=== PATIENT | female | born 1990 | race Caucasian/White ===

== ENCOUNTER 2020-06-11 22:22 | Emergency (ER) | payer BC, SELFPAY ==
[2020-06-11 22:32] VITALS: BP 129/76; PULSE 88; RESP 16; TEMP 36.4; O2SAT 98
--- NOTE | 2020-06-12 00:07 | ED.SKABFB ---
HPI - Skin/Abscess/Foreign Bdy General Chief complaint: Skin/Abscess/Foreign Body Stated complaint: staph infection Time Seen by Provider: 06/11/20 23:54 Source: patient Mode of arrival: ambulatory Limitations: no limitations History of Present Illness HPI narrative: 29-year-old with a history of anxiety here with complaints of rash in the pubic area since last 2 days. She denies any fever or chills. MD complaint: rash Severity: mild Relieving factors: none Exacerbating factors: none Context: none Related Data Allergies Allergy/AdvReac Type Severity Reaction Status Date / Time lidocaine Allergy Intermediate Swelling Verified 05/11/18 06:05 butorphanol Allergy Mild Swelling Verified 05/11/18 06:05 nitrofurantoin Allergy Mild RASH Verified 05/11/18 06:05 Penicillins Allergy Unknown Swelling, Verified 05/11/18 06:05 hives, itching Review of Systems Review of Systems: All systems reviewed & are unremarkable except as noted in HPI and below Constitutional: Constitutional: Reports no additional constitutional complaints Eyes: Eyes: Reports no additional eye complaints Cardiovascular: Cardiovascular: Reports no additional cardiovascular complaints Respiratory: Respiratory: Reports no additional respiratory complaints Gastrointestinal: Gastrointestinal: Reports no additional gastrointestinal complaints Integumentary/Breasts: Skin/Breast: Reports as per HPI PMFSH Past Medical History Medical History Anxiety Depression GERD (gastroesophageal reflux disease) Gestational diabetes Gestational HTN Surgical History Surgical History H/O section H/O tubal ligation History of tonsillectomy Social History Social History (Updated 05/16/19 @ 23:59 by Betsy Solis) Smoking status: Former smoker Gender identity (if verbalized by the patient): Female Exam Narrative: Exam Narrative: GENERAL: Well-appearing, well-nourished, and in no acute distress. HEAD: Normocephalic, atraumatic. EYES: PERRLA and EOMI. NECK: Supple. CHEST: Clear to auscultation. No respiratory distress. HEART: Regular rate and rhythm. No murmur heard. Normal peripheral pulse EXTREMITIES: Normal range of motion. No edema. SKIN: Warm, dry, a small erythematous area with a scab present in the pubic area , no drainage. NEURO: No focal deficits. Alert and oriented x3. PSYCH: Normal mood and affect. Course Vital Signs Vital signs: Vital Signs Temperature 36.4 C L 06/11/20 22:32 Pulse Rate 88 06/11/20 22:32 Respiratory Rate 16 06/11/20 22:32 Blood Pressure 129/76 06/11/20 22:32 Pulse Oximetry 98 06/11/20 22:32 Temperature 36.4 C L 06/11/20 22:32 Pulse Rate 88 06/11/20 22:32 Respiratory Rate 16 06/11/20 22:32 Blood Pressure 129/76 06/11/20 22:32 Pulse Oximetry 98 06/11/20 22:32 Discharge Plan Discharge Clinical Impression: Folliculitis Patient Disposition: Home, Self-Care Condition: Stable Instructions: Antibiotic Form, Folliculitis (ED) Prescriptions: New sulfamethoxazole-trimethoprim [Bactrim DS] 800-160 mg tablet 1 tablet PO Q12H Qty: 14 RF: 0 No Action ibuprofen 400 mg tablet 400 mg PO TID PRN (Reason: fever or pain) 10 Days Qty: 30 RF: 0 diazepam 5 mg tablet 5 mg PO HS PRN (Reason: pain, moderate) Qty: 10 RF: 0 acetaminophen [Tylenol] 325 mg capsule 325 mg PO ONCE 7 Days Qty: 30 RF: 0 Follow-up/Referrals: Raudel Hendrix MD [Primary Care Provider] - Time of Disposition: 00:13
== END 2020-06-12 00:19 | disposition home or self-care (01) ==
PROVIDERS: Emergency Provider Family Medicine; PCP Family Medicine
DX: L73.9 Follicular disorder, unspecified (principal); K21.9 Gastro-esophageal reflux disease without esophagitis; Z87.891 Personal history of nicotine dependence
CPT/HCPCS: 99283

== ENCOUNTER 2021-07-24 10:01 | Emergency (ER) | payer BC, SELFPAY ==
[2021-07-24 10:20] VITALS: BP 115/69; PULSE 94; RESP 18; TEMP 36.3; O2SAT 100
--- NOTE | 2021-07-24 10:20 | ED.LOWEXIN ---
HPI - Extremity Injury (Lower) General Chief Complaint: Extremity Injury, Lower Stated Complaint: hip pain Time Seen by Provider: 07/24/21 10:25 Source: patient and RN notes reviewed Mode of arrival: ambulatory Limitations: no limitations History of Present Illness HPI Narrative: 30-year-old female presents with concern for right hip pain. She reports 3 days ago while at work she felt a sudden pain in her right hip after bending. She denies any direct trauma or injury. She reports taking ibuprofen, however she is not been taking it regularly. She denies any bruising or swelling. She reports the pain radiates down the leg. She denies any numbness, weakness, decreased range of motion, swelling, redness, warmth. She reports pain worsens with weightbearing. Related Data Allergies Allergy/AdvReac Type Severity Reaction Status Date / Time lidocaine Allergy Intermediate Swelling Verified 07/24/21 10:29 butorphanol Allergy Mild Swelling Verified 07/24/21 10:29 nitrofurantoin Allergy Mild RASH Verified 07/24/21 10:29 Penicillins AdvReac Intermediate Swelling, Verified 07/24/21 10:29 hives, itching Review of Systems Review of Systems: CONSTITUTIONAL: Denies malaise, chills, sweats, or fever. SKIN: Denies rash or itching, open skin, laceration, abrasion, redness, warmth, swelling. MUSCULOSKELETAL: Reports right hip pain that radiates down the right leg NEUROLOGIC: Denies numbness, weakness All systems reviewed & are unremarkable except as noted in HPI and below PMFSH Past Medical History Medical History Anxiety Depression GERD (gastroesophageal reflux disease) Gestational diabetes Gestational HTN Surgical History Surgical History H/O section H/O tubal ligation History of tonsillectomy Social History Social History (Updated 05/16/19 @ 23:59 by Betsy Solis) Smoking status: Former smoker Gender identity (if verbalized by the patient): Female Comments At time of signature, agree with nursing past medical, surgical, social and family history. There is no relevant family history pertinent to the presenting complaint Exam Narrative: GENERAL: Well-appearing, well-nourished, and in no acute distress. HEAD: Normocephalic, atraumatic. EYES: PERRLA, sclera clear ENT: Mucous membranes moist. NECK: Supple. CHEST: No respiratory distress. Speaks in full sentences. HEART: Regular rate and rhythm. Normal peripheral pulses. EXTREMITIES: Grossly normal range of motion, no edema, normal strength and sensation. Right lateral hip tenderness. SKIN: Warm, dry, no visible rash. NEURO: Alert and oriented x3. PSYCH: Normal mood and affect Course Course Emergency Course: Patient is aware of diagnosis, understands and agrees to treatment plan. Anticipatory guidance given. Patient agrees to follow-up as directed and is aware of reasons to seek care at the emergency department. Portions of this record may have been created with voice recognition software Level of Care: Express Care Visit Vital Signs Vital signs: Reviewed. MDM - Extremity Injury (Lower) MDM Narrative Medical decision making narrative: Patients pain is consistent with musculoskeletal etiology. No signs of neurological or vascular compromise on exam. Compartments and tissues are soft without signs of compartment syndrome. Pain is felt appropriate for further evaluation on an outpatient basis. Critical Care Time Critical Care Time Critical Care Time: No Discharge Plan Discharge Clinical Impression: Acute hip pain Qualifiers: Laterality: right Qualified Code(s): M25.551 - Pain in right hip Patient Disposition: Home, Self-Care Condition: Stable Instructions: Hip Pain (ED) Additional Instructions: Walking and other gentle exercising as tolerated. Take Motrin 800mg every 6-8 hours with food for the next 2-3 days, take muscle rela
== END 2021-07-24 11:10 | disposition home or self-care (01) ==
PROVIDERS: Emergency Provider Nurse Practitioner; PCP Family Medicine
DX: M25.551 Pain in right hip (principal); K21.9 Gastro-esophageal reflux disease without esophagitis
CPT/HCPCS: 99213; G0463

== ENCOUNTER 2021-11-14 11:49 | Emergency (ER) | payer BC, SELFPAY ==
--- NOTE | ~2021-11-14 | XR_ITS ---
XR ankle RT min 3V DATE: 11/14/2021 12:10 INDICATION: Patient fell yesterday. Right ankle and foot pain TECHNIQUE: 4 views of right ankle COMPARISON: None FINDINGS: No fracture or dislocation of the ankle or disruption of the ankle mortise. No periosteal r eaction or bone destruction. IMPRESSION: Negative Reviewed, dictated and finalized at location A. IMPRESSION: Negative
--- NOTE | ~2021-11-14 | XR_ITS ---
XR foot RT min 3V DATE: 11/14/2021 12:12 INDICATION: Fell yesterday. Medial and dorsal pain of the foot, pain of all toes. TECHNIQUE: 4 views COMPARISON: None FINDINGS: There is minimal osteophyte is at the first metatarsophalangeal joint. No fracture or dislocation, periosteal reaction or bone destruction is detected. IMPRESSION: No fracture or dislocation Reviewed, dictated and finalized at location A. IMPRESSION: No fracture or dislocation
[2021-11-14 11:55] VITALS: BP 129/53; PULSE 75; RESP 18; TEMP 37; O2SAT 100
--- NOTE | 2021-11-14 12:02 | ED.LOWEXIN ---
HPI - Extremity Injury (Lower) General Chief Complaint: Extremity Injury, Lower Stated Complaint: Rt Ankle Pain Due to Fall Time Seen by Provider: 11/14/21 12:02 History of Present Illness HPI Narrative: Karina Appiah is a 30 yo female with PMH of anxiety, depression, GERD, who [facility] after fall down stairs at home last night and has pain in her right ankle and foot. Patient is able to walk but has pain Related Data Home Medications Medication Instructions Recorded Confirmed No Home Medications 11/14/21 11/14/21 Allergies Allergy/AdvReac Type Severity Reaction Status Date / Time lidocaine Allergy Intermediate Swelling Verified 11/14/21 12:03 butorphanol Allergy Mild Swelling Verified 11/14/21 12:03 nitrofurantoin Allergy Mild RASH Verified 11/14/21 12:03 Penicillins AdvReac Intermediate Swelling, Verified 11/14/21 12:03 hives, itching Review of Systems Review of Systems: CONSTITUTIONAL: Denies fever, chills, sweats. EYES: Denies visual changes, redness, discharge. ENT: Denies rhinorrhea, congestion, sore throat, otalgia. CARDIOVASCULAR: Denies chest pain, palpitations, edema. RESPIRATORY: Denies dyspnea, wheezing, cough GASTROINTESTINAL: Denies abdominal pain, nausea, vomiting, diarrhea. GENITOURINARY: Denies dysuria, hematuria, abnormal discharge SKIN: Denies rash or itching. NEUROLOGIC: Denies numbness, or focal weakness. PSYCHIATRIC: Denies anxiety or depression. Right foot and ankle pain PMFSH Past Medical History Medical History Anxiety Depression GERD (gastroesophageal reflux disease) Gestational diabetes Gestational HTN Surgical History Surgical History H/O section H/O tubal ligation History of tonsillectomy Social History Social History Smoking status: Former smoker Gender identity (if verbalized by the patient): Female Comments At time of signature, I agree with nursing past medical, surgical, social and family history. There is no relevant family history pertinent to the presenting complaint. Exam Narrative: GENERAL: This is a well-nourished, well-developed patient, in mild distress. HEAD: normocephalic, atraumatic. EYES: Sclera clear/white. Vision is grossly intact. EARS: External ears normal,. Hearing grossly intact. NOSE: External nose normal without nasal discharge, nares without redness, no rhinorrhea. THROAT: Mucous membranes moist, NECK: Neck supple, non-tender CARDIOVASCULAR: Regular rate and rhythm without murmurs, gallops, or rubs. RESPIRATORY: Clear to auscultation. Breath sounds equal bilaterally. No wheezes, rales, or rhonchi. GASTROINTESTINAL: not done SKIN: warm, intact with no suspicious lesions or rash, good texture and turgor. NEURO: awake, alert, and oriented to person, place and time. There were no obvious focal neurologic abnormalities. Steady gait EXTREMITIES: Normal range of motion. R foot/ankle- minimal swelling of ankle, states pain medial metatarsals that shoot pain nto toes. Good cap refill in toes, foot warm BACK: Nontender without deformity Course Course Emergency Course: Patient fell down a few steps last night; she hurt her right foot and ankle and has iced it and prompted her did not take any medication X-ray shows No fracture dislocation of the ankle or disruption of the ankle more T's no periosteal reaction bone destruction, minimal osteophyte at the first met tarsal phalangeal joint no fracture dislocation Patient placed in postop shoe given directions on RICE and told to use Tylenol or ibuprofen for pain; given work excuse Level of Care: Express Care Visit Vital Signs Vital signs: Vital Signs Temperature 98.6 F 11/14/21 11:55 Pulse Rate 75 11/14/21 11:55 Respiratory Rate 18 11/14/21 11:55 Blood Pressure 129/53 L 11/14/21 11:55 Puls
== END 2021-11-14 12:44 | disposition home or self-care (01) ==
PROVIDERS: Emergency Provider Nurse Practitioner; PCP Family Medicine
DX: S93.401A Sprain of unspecified ligament of right ankle, initial encounter (principal); S96.911A Strain of unspecified muscle and tendon at ankle and foot level, right foot, initial encounter; W10.9XXA Fall (on) (from) unspecified stairs and steps, initial encounter; K21.9 Gastro-esophageal reflux disease without esophagitis; Z87.891 Personal history of nicotine dependence
CPT/HCPCS: 73610; 73630; 99213; G0463

== ENCOUNTER 2024-06-08 22:38 | Emergency (ER) | payer BC, SELFPAY ==
--- NOTE | ~2024-06-08 | CT_ITS ---
EXAMINATION: CT abdomen pelvis wo con DATE: 06/09/2024 06:08 INDICATION: Flank pain. Hematuria. TECHNIQUE: Computed tomography (CT) of the abdomen and pelvis was performed without intravenous contr ast. Automated exposure control and iterative reconstruction technique were employed. The dose-length product was 1316.91 mGy-cm. COMPARISON: CT abdomen and pelvis 01/09/2014 FINDINGS: The visualized portions of the lung bases demonstrate mild atelectasis. No pleural effusion . The heart size is normal. No pericardial effusion. The liver, gallbladder, spleen, pancreas, adrena l glands, and kidneys are normal. There is no urolithiasis. There are no dilated loops of bowel. The appendix is normal. There are no pathologically enlarged lymph nodes. There is no free intraperitonea l fluid. There is mild thoracic and lumbar spondylosis. IMPRESSION: 1. No urolithiasis. Reviewed, dictated and finalized at location A. [employer] IMPRESSION: 1. No urolithiasis.
[2024-06-08 23:03] VITALS: BP 134/84; PULSE 80; RESP 16; TEMP 36.3; O2SAT 99
--- NOTE | 2024-06-09 04:45 | ED_ITS ---
HPI - General Adult General Chief complaint: Abdominal Pain Stated complaint: Right upper abd pain-radiates to back Time Seen by Provider: 06/09/24 04:01 History of Present Illness HPI narrative: 33-year-old female presenting to the emergency department for evaluation for right-sided abdominal pain with hematuria. Patient states she started having abdominal pain approximately 3 days ago. Patient denies any specific pain with urination. Patient denies any prior history of kidney stones. Related Data Allergies Allergy/AdvReac Type Severity Reaction Status Date / Time lidocaine Allergy Intermediate Swelling Verified 11/14/21 12:03 butorphanol Allergy Mild Swelling Verified 11/14/21 12:03 nitrofurantoin Allergy Mild RASH Verified 11/14/21 12:03 Penicillins AdvReac Intermediate Swelling, Verified 11/14/21 12:03 hives, itching Review of Systems 2 Review of Systems: All systems reviewed & are unremarkable except as noted in HPI and below PMFSH Past Medical History Medical History Anxiety Depression GERD (gastroesophageal reflux disease) Gestational diabetes Gestational HTN Surgical History Surgical History H/O section H/O tubal ligation History of tonsillectomy Social History Social History Smoking status: Former smoker Gender identity (if verbalized by the patient): Female Exam 2 Narrative: APPEARANCE: Well appearing, no pain, no distress, well-nourished. HEAD: normocephalic, atraumatic. EYES: PERRLA/EOMI, conjunctivae clear. NOSE: Normal no drainage EARS:TMS clear with good light reflex. THROAT: Pharynx clear, no exudate. NECK: Supple. No adenopathy, no masses. RESPIRATORY: Airway patent, respirations nonlabored. Clear to auscultation bilaterally, no rales, rhonchi, wheezing. CARDIOVASCULAR: Regular rate and rhythm without murmurs rubs or gallops. ABDOMINAL: Right lower quadrant and suprapubic tenderness to palpation MUSCULOSKELETAL: Moves all extremities. Strength/ROM intact, No edema, No calf tenderness. NEURO: Alert. Cranial nerves II through XII intact. SKIN: Warm, dry. Normal Color Course Vital Signs Vital signs: Vital Signs Temperature 97.3 F L 06/08/24 23:03 Pulse Rate 80 06/08/24 23:03 Respiratory Rate 16 06/08/24 23:03 Blood Pressure 134/84 06/08/24 23:03 Pulse Oximetry 99 06/08/24 23:03 Temperature 97.3 F L 06/08/24 23:03 Pulse Rate 66 06/09/24 05:20 Respiratory Rate 15 06/09/24 05:20 Blood Pressure 122/65 06/09/24 05:20 Pulse Oximetry 99 06/09/24 05:20 Medical Decision Making MDM Narrative Medical decision making narrative: 33-year-old female present to the emergency department for evaluation for right flank pain. Patient was afebrile with no leukocytosis and hemoglobin of 12.6. INR is 1.0. Creatinine is 0.65 and no other acute abnormalities on the CMP. Patient did have positive blood positive leukocyte esterase 11-20 red blood cells and 11-20 white blood cells. Concern for UTI but with patient's symptoms and the hematuria I ordered a CT scan without contrast to evaluate ureterolithiasis. CT scan was negative for kidney stones. Patient was started on Cipro for urinary tract infection. Patient was also provided Pyridium for symptom control. Patient was updated results of the workup patient was comfortable plan for discharge and close follow-up. Differential Diagnosis Differential Diagnosis: Ureterolithiasis, UTI, appendicitis, colitis, diverticulitis Vital Signs Vital Signs: Vital Signs Temperature 97.3 F L 06/08/24 23:03 Pulse Rate 80 06/08/24 23:03 Respiratory Rate 16 06/08/24 23:03 Blood Pressure 134/84 06/08/24 23:03 Pulse Oximetry 99 06/08/24 23:03 Temperature 97.3 F L 06/08/24 23:03 Pulse Rate 66 06/09/24 05:20 Respiratory Rate 15 06/09/24 05:20 Blood Pressure 122/65 06/09/24 05:20 Pulse Oximetry 99 06/09/24 05:20 Lab Data Lab results reviewed: Yes I reviewed the patient's lab results. 06/09/24 05:15 06/09/24 05:15 Labs: Lab Results 06/09/24 Range/Units 05:15 WBC 5.5 (4.5-10.0) K/mm3 RBC 4.56 (4.2-5.4) M/mm3 Hgb 12.6 (12.0-15.0) g/dL Hct 39.1 (37.0-47.0) % MCV 85.7 (80-100) fl MCH 27.6 (26-34) pg MCHC 32.2 (32-36) g/dl RDW 14.2 (11.5-14.5) % Plt Count 213 (150-375) k/mm3 MPV 10.6 H (7.4-10.4) fl Immature Gran % (Auto) 0.2 (0-0.5) % Neut % (Auto) 51.8 (45.5-73.1) % Lymph % (Auto) 38.9 (18.3-44.2) % Phillips % (Auto) 9.1 H (2.6-8.5) % Eos % (Auto) 0.0 (0-4.4) % Baso % (Auto) 0.0 L (0.2-1.2) % Lymph # (Auto) 2.13 (0.9-3.2) K/mm3 Phillips # (Auto) 0.5 (0.1-0.6) K/mm3 Eos # (Auto) 0.0 (0-0.3) K/mm3 Baso # (Auto) 0.0 (0.0-0.1) K/mm3 Abs Immat Gran (auto) 0.01 (0.00-0.031) K/mm3 Absolute Neuts (auto) 2.8 (1.3-6.7) K/mm3 Absolute Nucleated RBC 0.000 (0.0-0.012) K/mm3 Nucleated RBC % 0.0 (0.0-0.2) % PT 13.1 (11.1-14.7) Seconds INR 1.0 APTT 39.5 H (22.3-36.8) Seconds Sodium 137 (137-145) mmol/L Potassium 3.7 (3.4-5.0) mmol/L Chloride 99 (98-107) mmol/L Carbon Dioxide 28 (22-30) mmol/L Anion Gap 10 (4-12) mmol/L BUN 12 (7-17) mg/dL Creatinine 0.65 L (0.7-1.0) mg/dL Estim Creat Clear Calc Not Reportable Estimated GFR > 60 (59 - ) Glucose 90 (65-110) mg/dL Calcium 8.5 (8.4-10.2) mg/dL Total Bilirubin 0.5 (0.2-1.3) mg/dL AST 28 (14-36) U/L ALT 29 (6-35) U/L Alkaline Phosphatase 99 (38-126) U/L Total Protein 7.0 (6.3-8.2) g/dL Albumin 4.1 (3.5-5.1) g/dL Lipase 60 (23-300) U/L Urine Color Yellow (Yellow) Urine Appearance Cloudy H (Clear) Urine pH 5.0 (5.0-9.0) Ur Specific [place] 1.026 (1.001-1.035) Urine Protein Trace (Negative) mg/dL Urine Glucose (UA) Negative (Negative) mg/dL Urine Ketones Trace H (Negative) mg/dL Ur Blood (Man) 3+ H (Negative) Urine Nitrate Negative (Negative) Urine Bilirubin Negative (Negative) Urine Urobilinogen 0.2 (<2.0) mg/dL Leukocyte Esterase Rfl 1+ H (Negative) COLBY/UL Urine RBC 11-20 H (0-2) /hpf Urine WBC 11-20 H (0-3) /hpf Ur Squamous Epith Cells Few (Few) /hpf Urine Bacteria Rare /hpf Urine Casts 0-2 Imaging Data Radiologist's impression: Impressions Abdomen/Pelvis CT 06/09/24 06:12 IMPRESSION: 1. No urolithiasis. Discharge Plan Discharge Clinical Impression: Urinary tract infection Patient Disposition: Home, Self-Care Condition: Stable Instructions: Antibiotic Form, Urinary Tract Infection in Women (DC) Additional Instructions: Antibiotic as directed until completed. Pyridium if needed for urinary symptoms. Have close follow-up with her primary care physician. Patient Language: Danish Prescriptions: New ciprofloxacin HCl [Cipro] 500 mg tablet 500 mg PO Q12H 7 Days Qty: 14 0RF phenazopyridine [Pyridium] 100 mg tablet 100 mg PO TID PRN (Reason: pain) Qty: 6 0RF Follow-up/Referrals: Raudel Hendrix MD [Primary Care Provider] -
[2024-06-09 05:20] VITALS: BP 122/65; PULSE 66; RESP 15; O2SAT 99
[2024-06-09] MEDS: HYDROmorphone HCL INJ (*CRX) 1 MG/ML SYR 0.5 MG IV PUSH (05:20)
[2024-06-09 05:23] LABS: Hematocrit 39.1 % (37.0-47.0); Hemoglobin 12.6 g/dL (12.0-15.0); Immature Granulocyte Absolute 0.01 K/mm3 (0.00-0.031); Immature Granulocyte Percent A 0.2 % (0-0.5); Lymphocytes Absolute Auto 2.13 K/mm3 (0.9-3.2); Lymphocytes Percent Auto 38.9 % (18.3-44.2); Mean Corpuscular HGB Conc 32.2 g/dl (32-36); Mean Corpuscular Hemoglobin 27.6 pg (26-34); Mean Corpuscular Volume 85.7 fl (80-100); Mean Platelet Volume 10.6 fl (7.4-10.4); Monocytes Absolute Auto 0.5 K/mm3 (0.1-0.6); Monocytes Percent Auto 9.1 % (2.6-8.5); Neutrophils Absolute Auto 2.8 K/mm3 (1.3-6.7); Neutrophils Percent Auto 51.8 % (45.5-73.1); Platelet Count Result 213 k/mm3 (150-375); Red Blood Count 4.56 M/mm3 (4.2-5.4); Red Cell Distribution Width 14.2 % (11.5-14.5); White Blood Count 5.5 K/mm3 (4.5-10.0)
[2024-06-09 05:29] LABS: Add Urine Microscopic? YES; Appearance Urine Cloudy (Clear); Bacteria Urine Rare /hpf; Bilirubin Urine Negative (Negative); Blood Urine 3+ (Negative); Color Urine Yellow (Yellow); Glucose Urine UA Negative (Negative); Ketones Urine Trace mg/dL (Negative); Leukocyte Esterase Ur 1+ LEU/UL (Negative); Nitrate Urine Negative (Negative); Non Pathogenic Casts 0-2; Protein Urine Trace mg/dL (Negative); Specific Grav Ur 1.026 (1.001-1.035); Squamous Epithelial Cell Urine Few /hpf (Few); Urobilinogen Urine 0.2 mg/dL (<2.0)
[2024-06-09 05:36] LABS: Prothrombin Time 13.1 Seconds (11.1-14.7)
[2024-06-09 05:37] LABS: Alanine Aminotransferase 29 U/L (6-35); Albumin Level 4.1 g/dL (3.5-5.1); Alkaline Phosphatase 99 U/L (38-126); Anion Gap 10 mmol/L (4-12); Aspartate Amino Transferase 28 U/L (14-36); Bilirubin,Total 0.5 mg/dL (0.2-1.3); Blood Urea Nitrogen 12 mg/dL (7-17); Calcium 8.5 mg/dL (8.4-10.2); Carbon Dioxide 28 mmol/L (22-30); Chloride 99 mmol/L (98-107); Estimated Glomerular Filt Rate > 60; Glucose 90 mg/dL (65-110); Lipase 60 U/L (23-300); Partial Thromboplastin Time 39.5 Seconds (22.3-36.8); Potassium 3.7 mmol/L (3.4-5.0); Sodium 137 mmol/L (137-145)
[2024-06-09] MEDS: CIPROFLOXACIN 500 MG TAB PO (07:03)
== END 2024-06-09 07:05 | disposition home or self-care (01) ==
PROVIDERS: Emergency Provider Emergency Medicine; PCP Family Medicine
DX: N39.0 Urinary tract infection, site not specified (principal); K21.9 Gastro-esophageal reflux disease without esophagitis; Z87.891 Personal history of nicotine dependence
CPT/HCPCS: 36415; 74176; 80053; 81001; 83690; 85025; 85610; 85730; 87086; 96374; 99284; A9270; J1171